=== PATIENT | female | born 1955 | race Caucasian/White ===

== ENCOUNTER → 2018-05-19 09:27 | Outpatient (CLI) | payer MEDICARE ==
[2012-02-27 11:24] VITALS: BMI 31.9
== END | disposition home or self-care (01) ==
LOC: D.MRI 09:27
PROVIDERS: ATTEND Orthopaedic Surgery
DX: S13.100A Subluxation of unspecified cervical vertebrae, initial encounter (principal); X58.XXXA Exposure to other specified factors, initial encounter

== ENCOUNTER 2018-08-13 16:05 | Inpatient (IN) | payer MEDICARE ==
[~2018-08-13] VITALS: Ht 160 cm; Wt 77.1 kg
[2018-08-13] MEDS ORDERED: BENICAR HCT 201 EAC1 PO (16:12)
[2018-08-13] MEDS ORDERED: NEURONTIN 300300 MG PO (16:12)
[2018-08-13] MEDS ORDERED: DYAZIDE 37.5/251 CAP PO (16:14)
[2018-08-13 16:59] LABS: BASOPHILS 0.2 % (0-2); EOSINOPHILS 2.1 % (0-7); HEMATOCRIT 32.4 % (36.0-48.0); HEMOGLOBIN 11.6 g/dL (12-16); IMMATURE GRANULOCYTES 0.2 % (0-5); LYMPHOCYTES 35.1 % (15-50); MCH 28.3 pg (26.0-34.0); MCHC 35.8 g/dL (31.0-37.0); MEAN PLATELET VOLUME 9.6 fL (7.4-10.4); MONOCYTES 8.8 % (2-11); NEUTROPHILS 53.6 % (40-80); PLATELET COUNT 197 10x3/uL (130-400); RDW 13.1 % (11.5-14.5); WBC 8.5 10x3/uL (4.8-10.8)
[2018-08-13 17:30] LABS: ALBUMIN 4.2 g/dL (3.4-5.0); ANION GAP 11.5 mmol/L (8-16); BILIRUBIN - TOTAL 0.88 mg/dL (0.2-1.3); CALCIUM 9.3 mg/dL (8.5-10.1); CARBON DIOXIDE 29.6 mmol/L (21.0-32.0); POTASSIUM - SERUM 3.1 mmol/L (3.5-5.1); PROTEIN - SERUM 7.6 g/dL (6.4-8.2)
[2018-08-13 18:15] LABS: INR 1.01 (0.85-1.17); PROTIME 12.8 SECONDS (11.6-15.0)
[2018-08-13 18:16] LABS: APTT 32.1 SECONDS (22.8-39.4)
[2018-08-13 18:30] VITALS: BP 106/59
[2018-08-13 18:34] LABS: CKMB 1.2 U/L (0.0-3.6); CREATINE KINASE 134 UL (21-215); MAGNESIUM - SERUM 2.5 mg/dL (1.8-2.4); TROPONIN-I < 0.017 ng/mL (0.000-0.060)
[2018-08-13 19:38] LABS: APPEARANCE CLEAR (CLEAR); BILIRUBIN NEGATIVE (NEGATIVE); COLOR YELLOW (YELLOW); GLUCOSE NEGATIVE (NEGATIVE); KETONE SMALL mg/dL (NEGATIVE); NITRITE NEGATIVE (NEGATIVE); PROTEIN NEGATIVE (NEGATIVE); UROBILINOGEN NORMAL (NORMAL)
[2018-08-13 19:39] LABS: EPITHELIAL CELLS OCC /hpf (0-5); WHITE CELLS - URINE 0-5 /hpf (0-5)
[2018-08-13 19:40] LABS: BACTERIA FEW /hpf (NONE SEEN)
[2018-08-13 20:00] VITALS: BP 104/48
[2018-08-13] MEDS ORDERED: TRIAMT/HCTZ CAP 37. (20:43)
[2018-08-13] MEDS ORDERED: HYDROCODON-ACE1 EA10 PO (20:44)
[2018-08-13 20:48] VITALS: BP 104/48; Ht 160 cm; Wt 77.1 kg
[2018-08-13 23:59] LABS: CKMB 1.2 U/L (0.0-3.6); CREATINE KINASE 105 UL (21-215); TROPONIN-I < 0.017 ng/mL (0.000-0.060)
[2018-08-14] VITALS (7 sets, daily range): BP systolic 81–120; BP diastolic 44–70
[2018-08-14 05:15] LABS: ALBUMIN 3.4 g/dL (3.4-5.0); ALKALINE PHOSPHATASE 74 U/L (46-116); CALCIUM 8.3 mg/dL (8.5-10.1); CHLORIDE - SERUM 92 mmol/L (98-107); CREATINE KINASE 91 UL (21-215); CREATININE - SERUM 0.9 mg/dL (0.6-1.3); GLUCOSE 84 mg/dL (74-106); POTASSIUM - SERUM 3.1 mmol/L (3.5-5.1); PROTEIN - SERUM 6.2 g/dL (6.4-8.2); SODIUM 129 mmol/L (136-145); TROPONIN-I < 0.017 ng/mL (0.000-0.060); eGFR NON AFRICAN AMERICAN 67 mL/min (90-120)
[2018-08-14 05:19] LABS: ALT (SGPT) 12 U/L (10-68); CALC OSMOLALITY 261 mosm/kg (275-300); UREA NITROGEN 23 mg/dL (7-18)
[2018-08-14 08:13] LABS: BASOPHILS 0.3 % (0-2); EOSINOPHILS 3.8 % (0-7); HEMATOCRIT 28.4 % (36.0-48.0); HEMOGLOBIN 9.8 g/dL (12-16); IMMATURE GRANULOCYTES 0.2 % (0-5); MCH 27.5 pg (26.0-34.0); MCHC 34.5 g/dL (31.0-37.0); MCV 79.6 fL (80.0-100.0); MEAN PLATELET VOLUME 10.2 fL (7.4-10.4); MONOCYTES 8.7 % (2-11); PLATELET COUNT 184 10x3/uL (130-400); RBC 3.57 10x6/uL (4.00-5.40); RDW 13.2 % (11.5-14.5)
[2018-08-14 08:14] LABS: WBC 5.8 10x3/uL (4.8-10.8)
--- NOTE | 2018-08-14 08:20 | NUR ---
AAOX4. ON ROOM AIR, EVEN UNLABORED BREATHING, ON TELEMETRY, DENIES ANY CURRENT NEEDS OR DISCOMFORTS, BED LOWERED AND LOCKED, CALL LIGHT WITHIN REACH. CPOC
[2018-08-14 12:50] LABS: CREATINE KINASE 87 UL (21-215)
[2018-08-14 12:53] LABS: TROPONIN-I < 0.017 ng/mL (0.000-0.060)
[2018-08-14 13:57] LABS: % SATURATION 30 % (15-55); IRON 66 ug/dl (35-150); TOTAL IRON BIND CAPACITY 219 ug/dl (260-445); UNSAT IRON BIND CAPACITY 153 ug/dl (150-375)
[2018-08-14 14:25] LABS: FERRITIN 279 ng/mL (3-244); LDH 141 U/L (81-234)
--- NOTE | 2018-08-14 16:49 | NUR ---
WHEN BP HAS BEEN TAKEN WITH AUTOMATIC CUFF TO UPPER ARM, LOW BP READINGS SUCH 92/50, 85/48, 85/49, MANUAL BP OF UPPER LEFT ARM WAS 116/70, 116/62, 102/62. C/O DIZZINESS UPON STANDING, SENT PAGE OUT TO DR. WOOD, PATTERNMAKER PRESSURE CAST, BED LOWERED AND LOCKED, CALL LIGHT WITHIN REACH. CPOC
--- NOTE | 2018-08-14 21:41 | NUR ---
PT ALERT & ORIENTED. C/O JAW PAIN 08/19. GAVE NORCO-10 1 TAB PO. COMPLETE ASSESSMENT PER FLOW-SHEET. NO OTHER NEEDS. WILL REASSESS AND CONTINUE TO MONITOR.
[2018-08-15] VITALS: BP 104/47
[2018-08-15 04:00] VITALS: BP 100/48
[2018-08-15 06:26] LABS: CALC OSMOLALITY 277 mosm/kg (275-300); CALCIUM 8.6 mg/dL (8.5-10.1); CARBON DIOXIDE 29.4 mmol/L (21.0-32.0); CHLORIDE - SERUM 104 mmol/L (98-107); CREATININE - SERUM 0.8 mg/dL (0.6-1.3); GLUCOSE 90 mg/dL (74-106); SODIUM 138 mmol/L (136-145); UREA NITROGEN 19 mg/dL (7-18); eGFR NON AFRICAN AMERICAN 77 mL/min (90-120)
[2018-08-15 06:28] LABS: POTASSIUM - SERUM 4.5 mmol/L (3.5-5.1)
[2018-08-15] MEDS ORDERED: TRAZODONE HCL150 MG PO (06:54)
[2018-08-15] MEDS ORDERED: OMEPRAZOLE20 M1 PO (06:55)
--- NOTE | 2018-08-15 06:56 | HP ---
PATIENT: BEE GUILLORY MEDICAL RECORD: [id number] ACCOUNT: [id number] LOCATION:D.[id number] : 55 ADMISSION DATE: 08/14/18 PCP: WIL WOOD MD HISTORY AND PHYSICAL EXAMINATION REASON FOR ADMISSION: Weakness and hypotension. HISTORY OF PRESENT ILLNESS: The patient is a 63-year-old female who states she had lost about 17 pounds in the last 2 weeks on HCG diet. She began feeling very lightheaded with orthostatic dizziness and near syncope. She was very weak and had some nausea. She came to the ER for this reason. She was found to be mildly hypotensive and also sodium in the 125 range. For this reason, she was admitted. She denies chest pain, diarrhea, but has had some intermittent vomiting. PAST MEDICAL HISTORY: Kidney stones, fibromyalgia, osteoarthritis, cervical and lumbar disc disease, recent right rotator cuff injury, essential hypertension, chronic anxiety, hyperlipidemia, diverticulitis, GERD, small hiatal hernia, TMJ dysfunction. PAST SURGICAL HISTORY: Total abdominal hysterectomy and oophorectomy. She has had arthroscopy on shoulder, calcaneal spurs removed from both heels in the past, facelift operation. FAMILY HISTORY: Mother is alive, has anxiety, hypertension and osteoarthritis. Father is . His health is unknown. Aunt with colon cancer. SOCIAL HISTORY: She is now a nonsmoker, having quit recently. Drinks occasional alcoholic beverage. She is a , but currently dating. Uses caffeine. ALLERGIES: DARVOCET. HOME MEDICATIONS: [place] 10 one half to one h.s. for severe back pain, Xanax 0.25 mg twice a day as needed for anxiety, Dyazide 1 q.a.m., Voltaren gel 1% applied to skin over affected joint t.i.d., Flonase nasal spray 1 squirt each nostril daily, ProAir HFA 2 puffs q.4 hours p.r.n. wheezing, cyclobenzaprine 10 mg at h.s. for lumbago, omeprazole 20 mg p.o. q.a.m., Lyrica 75 mg p.o. b.i.d., Meloxicam 15 mg p.o. daily. Benicar 20/12.5 one q.a.m., Neurontin 300 mg p.o. t.i.d., and Dyazide capsule 37.5/25 one daily. ALLERGIES: None mentioned. REVIEW OF SYSTEMS: GENERAL: Fatigue for the last 2 weeks. No fever. HEENT: No recent visual change, sinus congestion, or sore throat. RESPIRATORY: No SOB or cough. CARDIAC: No chest pain, palpitations, claudication. When she stands, she gets lightheaded. GYNECOLOGICAL: No vaginal bleeding. GENITOURINARY: No dysuria. GASTROINTESTINAL: No dyspepsia, change in stools, blood per rectum or dysphagia. NEUROLOGIC: Denies severe headache. Admits to when standing feeling lightheaded and dizzy, but no vertigo symptoms. No weakness in arms or legs. HISTORY AND PHYSICAL [id number] BEE GUILLORY PHYSICAL EXAMINATION: VITAL SIGNS: Temperature is 98, pressure is 90/60, heart rate is 80, respirations are 20, sats 97% on room air. GENERAL: The patient is alert, somewhat tearful. Eyes are clear. NECK: Supple, without bruits or masses. Neck is unremarkable. CHEST: Clear. HEART: Regular rate without murmur. ABDOMEN: Soft, nontender. EXTREMITIES: No CCE. Has had pain on abduction of both shoulders. LABORATORY DATA: Shows a sodium of 125, potassium 3.1, glucose of 84, BUN 23, creatinine 0.9. White count 5800, H&H dropped to 9.8 and 28.4 with an MCV of 79.6. Urine shows small ketones, few bacteria. Specific gravity is 1.01. INR is 1.01. IMAGING: Chest x-ray shows no acute changes. EKG shows first degree AV block. ASSESSMENT: 1. Orthostatic hypotension, symptomatic. 2. Symptomatic hyponatremia. 3. Hypokalemia. 4. Rapid weight loss on HCG diet. 5. History of cervical and lumbar disc disease, chronic pain syndrome, rotator cuff tears, postmenopausal post-hysterectomy. PLAN: The patient was given fluid bolus of saline in the ER. We will continue IV fluids until blood pressure stabilizes. Hold Benicar for now. Replace potassium orally and IV. Cardiac monitoring. Further workup pending clinical course. TRANSINT:[id number] Voice Confirmation ID: [id number] DOCUMENT ID: [id number] WIL WOOD MD at 0656 CC: [id number] DICTATION DATE: 08/14/18 1312 POWER GENERATION TURBINE ROOM OPERATOR: 08/14/18 1343 ADM IN [facility] [address] [id number]
[2018-08-15 08:47] VITALS: BP 96/55
--- NOTE | 2018-08-15 09:53 | NUR ---
UPON DC PT STATED THAT SHE WAS VERY DIZZY, SUPERVISOR CAB WAS CALLED, WHEN I WENT BACK INTO HER ROOM SHE STATED "IM FINE, IM READY TO GO" AND BEGAN TO LEAVE. WE WERE WALKING OUT [facility] WITH CASE MANAGEMENT APPROACHED HER TO TALK ABOUT HER INSURANCE AND SHE TOLD HER THAT HER BLOOD PRESURE WAS LOW AND SHE WAS FEELING DIZZY AGAIN SO I TOOK HER BACK TO HER ROOM TO LAY DOWN. A FEW MOMENTS LATER AND MALE FRIEND SHOWED UP AND SHE STATED "I FEEL FINE ABOUT LEAVING WITH HIM, ID JUST LIKE TO KNOW MY BLOOD PRESURE BEFORE I LEAVE." I CHECKED HER BLOOD PRESSURE IT WAS 96/51. SUPERVISOR CAB WAS NOTIFIED OF BP AND WAS FINE WITH HER LEAVING, FOLLOW UP VISIT IN A WEEK.
--- NOTE | 2018-08-15 13:16 | MORECARE ---
CASE MANAGEMENT DISCHARGE SUMMARY PATIENT: BEE GUILLORY [place] UNIT: [id number] ADM DATE: 08/14/18 AGE: 63 : 55 SEX: F ROOM/BED: D.2214 AUTHOR: ALOK ORTIZ PHYSICIAN: REFERRING PHYSICIAN: AISHWARYA BRAY MD DATE OF SERVICE: 08/15/18 Discharge Plan Patient Name: BEE GUILLORY Facility: [facility]:[place] : 1955 Planned Disposition: Home Anticipated Discharge Date: 08/15/18 Discharge Date: 08/15/2018 Expected LOS: 1 Initial Reviewer: [email or web address] Initial Review Date: 08/13/2018 Generated: 08/15/18 2:16 pm Patient Name: BEE GUILLORY Page [id number] at 1316 All edits/amendments must be made on the electronic document DICTATION DATE: 08/15/18 1316 BUSINESS TECHNOLOGY ARCHITECT: YRN 08/15/18 1316 RPT#: [id number] DC DATE:08/15/18 STATUS: DIS IN [facility] [address] [place] [address] END OF REPORT
--- NOTE | 2018-08-15 13:36 | MORECARE ---
CASE MANAGEMENT DISCHARGE SUMMARY PATIENT: BEE GUILLORY [place] UNIT: [id number] ADM DATE: 08/14/18 AGE: 63 : 55 SEX: F ROOM/BED: D.2214 AUTHOR: ALOK ORTIZ PHYSICIAN: REFERRING PHYSICIAN: AISHWARYA BRAY MD DATE OF SERVICE: 08/15/18 Discharge Plan Patient Name: BEE GUILLORY Facility: [facility]:[place] : 1955 Planned Disposition: Home Anticipated Discharge Date: 08/15/18 Discharge Date: 08/15/2018 Expected LOS: 1 Initial Reviewer: [email or web address] Initial Review Date: 08/13/2018 Generated: 08/15/18 2:36 pm Comments DCP- Discharge Planning Updated by [id number]: Florecita Skelton on 08/15/18 12:[address] LATE ENTRY 0920 CM WAS GOING TO THE PATIENT'S ROOM. SHE WAS ACTUALLY IN THE PROCESS OF WALKING OUT. ROSIE SPOKE WITH HER TO EXPLAIN THE DISCHARGE IMM. SHE STARTED TO COMPLAIN SHE FELT LIGHTHEADED AND DIZZY. SHE WANTED HER BLOOD PRESSURE CHECKED. ROSIE ADVISED THE PRIMARY NURSE TO NOTIFY THE PCP OF PATIENT COMPLAINTS AFTER CHECKING VITAL SIGNS. 0940 DISCHARGE IMM WAS SIGNED. PATIENT DECIDED SHE FELT MUCH BETTER! HER FRIEND ARRIVED TO ASSIST HER HOME. NO FURTHER COMPLAINTS. Coverage Notice Reviewer: [id number] - Florecita Skelton Notice Issued Date-Time: 08/15/2018 9:40 Notice Type: IM Discharge Notice Notice Delivered To: Patient Relationship to Patient: Self Process Manager Name: Delivery Method: HAND - Hand Delivered Stacie Days: Prior Verbal Notification: Recipient Understood Notice: Yes Recipient Signature: Yes Med Rec Note Co-signed by Attending: Coverage Notice Comment: CM DISCUSSED DISCHARGE IMM. PATIENT STATED SHE UNDERSTOOD. DISCHARGE IMM SERVED. SIGNATURE WAS OBTAINED. COPY TO THE PATIENT. COPY TO THE HARD COVER CHART. Last DP export: 08/15/18 12:16 pm Patient Name: BEE GUILLORY Page [phone] at 1336 All edits/amendments must be made on the electronic document DICTATION DATE: 08/15/18 1335 CLASSROOM TECHNOLOGY TECHNICIAN: YRN 08/15/18 1335 RPT#: [id number] DC DATE:08/15/18 STATUS: DIS IN [facility] [address] [place] [address] END OF REPORT
--- NOTE | 2018-08-15 13:42 | MORECARE ---
CASE MANAGEMENT DISCHARGE SUMMARY PATIENT: BEE GUILLORY [place] UNIT: [id number] ADM DATE: 08/14/18 AGE: 63 : 55 SEX: F ROOM/BED: D.2214 AUTHOR: ALOK ORTIZ PHYSICIAN: REFERRING PHYSICIAN: AISHWARYA BRAY MD DATE OF SERVICE: 08/15/18 Discharge Plan Patient Name: BEE GUILLORY Facility: [facility]:[place] : 1955 Planned Disposition: Home Anticipated Discharge Date: 08/15/18 Discharge Date: 08/15/2018 Expected LOS: 1 Initial Reviewer: [email or web address] Initial Review Date: 08/13/2018 Generated: 08/15/18 2:42 pm Comments DCP- Discharge Planning Updated by [email or web address]: Florecita Skelton on 08/15/18 12:[address] LATE ENTRY 0920 CM WAS GOING TO THE PATIENT'S ROOM. SHE WAS ACTUALLY IN THE PROCESS OF WALKING OUT. ROSIE SPOKE WITH HER TO EXPLAIN THE DISCHARGE IMM. SHE STARTED TO COMPLAIN SHE FELT LIGHTHEADED AND DIZZY. SHE WANTED HER BLOOD PRESSURE CHECKED. ROSIE ADVISED THE PRIMARY NURSE TO NOTIFY THE PCP OF PATIENT COMPLAINTS AFTER CHECKING VITAL SIGNS. 0940 DISCHARGE IMM WAS SIGNED. PATIENT DECIDED SHE FELT MUCH BETTER! HER FRIEND ARRIVED TO ASSIST HER HOME. NO FURTHER COMPLAINTS. Coverage Notice Reviewer: [id number] - Florecita Skelton Notice Issued Date-Time: 08/15/2018 9:40 Notice Type: IM Discharge Notice Notice Delivered To: Patient Relationship to Patient: Self Pattern And Chain Maker Name: Delivery Method: HAND - Hand Delivered Stacie Days: Prior Verbal Notification: Recipient Understood Notice: Yes Recipient Signature: Yes Med Rec Note Co-signed by Attending: Coverage Notice Comment: CM DISCUSSED DISCHARGE IMM. PATIENT STATED SHE UNDERSTOOD. DISCHARGE IMM SERVED. SIGNATURE WAS OBTAINED. COPY TO THE PATIENT. COPY TO THE HARD COVER CHART. Last DP export: 08/15/18 12:36 pm Patient Name: BEE GUILLORY Page [id number] at 1342 All edits/amendments must be made on the electronic document DICTATION DATE: 08/15/18 1342 DIRECTOR OF CREATIVE SERVICES: YRN 08/15/18 1342 RPT#: [id number] DC DATE:08/15/18 STATUS: DIS IN [facility] [address] [place] [address] END OF REPORT
== END 2018-08-15 09:48 | disposition home or self-care (01) | DRG 312 ==
LOC: D.ER 16:05 → OBSVTIME 18:59 → D.MS 18:59
PROVIDERS: Family Medicine; ADMIT Family Medicine; ATTEND Family Medicine
DX: I95.1 Orthostatic hypotension (principal); E87.1 Hypo-osmolality and hyponatremia; R53.1 Weakness; M79.7 Fibromyalgia; I10 Essential (primary) hypertension; E78.5 Hyperlipidemia, unspecified; K21.9 Gastro-esophageal reflux disease without esophagitis; E87.6 Hypokalemia; G89.4 Chronic pain syndrome

== ENCOUNTER → 2018-11-04 09:27 | Outpatient (CLI) | payer MEDICARE ==
[~2018-11-04 09:27] MED LIST: BENICAR HCT 201 EAC1 PO; DYAZIDE 37.5/251 CAP PO; HYDROCODON-ACE1 EA10 PO; NEURONTIN 300300 MG PO; OMEPRAZOLE20 M1 PO; TRAZODONE HCL150 MG PO; TRIAMT/HCTZ CAP 37.
== END | disposition home or self-care (01) ==
LOC: D.MRI 10-28 09:00
PROVIDERS: ATTEND Family Medicine
DX: S83.281A Other tear of lateral meniscus, current injury, right knee, initial encounter (principal)

== ENCOUNTER 2019-02-01 09:20 | Day surgery (SDC) | payer MEDICARE ==
[2019-01-28 12:02] LABS: HEMATOCRIT 37.1 % (36.0-48.0); HEMOGLOBIN 12.1 g/dL (12-16); MCH 28.7 pg (26.0-34.0); MCHC 32.6 g/dL (31.0-37.0); MCV 87.9 fL (80.0-100.0); MEAN PLATELET VOLUME 11.2 fL (7.4-10.4); RBC 4.22 10x6/uL (4.00-5.40); RDW 13.4 % (11.5-14.5); WBC 5.3 10x3/uL (4.8-10.8)
[~2019-02-01] VITALS: Ht 160 cm; Wt 70.3 kg
[2019-02-01 11:04] VITALS: BP 120/72; Ht 160 cm; Wt 70.3 kg
--- NOTE | 2019-02-01 18:42 | NUR ---
1820 B/P ELEVATED BECAUSE PT STATED CUFF WAS HURTING HER. IV REMOVED AND INSTRUCTIONS GIVEN. PT WAS MEDICATED AT 1745 BUT PAIN NOT RELIEVED. PT TAKES NORCO 2 TABLETS AT HOME FOR NECK PAIN. UP WITH WALKER. DR WIN AT BEDSIDE TO TALK WITH PT ABOUT HER SURGERY. ASSITED IN W/C AND D/C HOME
--- NOTE | 2019-02-03 15:58 | OP ---
PATIENT NAME: BEE GUILLORY MEDICAL RECORD: [id number] :55 LOCATION:D.OPS ADMISSION DATE: SURGEON: RAY WIN MD DATE OF OPERATION: 02/01/2019 PREOPERATIVE DIAGNOSIS: Medial meniscus tear of the right knee. POSTOPERATIVE DIAGNOSES: Medial meniscus tear of the right knee plus lateral meniscus tear of the right knee. PROCEDURES: 1. Arthroscopic partial medial meniscectomy. 2. Arthroscopic partial lateral meniscectomy. SURGEON: Ray Win MD ANESTHESIA: General. INTRAOPERATIVE COMPLICATIONS: None. 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 OPERATIVE SUMMARY IN DETAIL: After obtaining the preoperative orthopedic surgery consent as well as anesthetic consultation, evaluation and clearance, the patient was brought to the operating room and placed on the operating room table in the operating room table in supine position. After adequate general laryngeal mask airway was administered, tourniquet was placed about the proximal aspect of the patient's right lower extremity. Right lower extremity was then prepped and draped in routine sterile fashion. At this point, the appropriate timeout was taken and agreed upon by all. The leg was elevated and exsanguinated. Tourniquet was elevated to 350 mmHg. Routine inferolateral portal was established followed by a superomedial portal and inferomedial portal. Diagnostic arthroscopy did show the patient to have the above-mentioned findings. Attention was first turned to the medial meniscus. A combination of the arthroscopic meniscotome as well as a resector was utilized to debride the medial meniscus back to stable meniscal elements. Gentle grade III chondromalacia of the distal femoral condyle was gently treated with mild chondroplasty. The leg was then put in a [id number] position and while in the [id number] position, the tear was taken down out of the notch with the nerve retractor and then the scope was switched for medial portal viewing while to the lateral portal, the torn portion of the lateral meniscus was taken down in its entirety. The root was intact. The resector was utilized to smoothen the edge of the remainder of the lateral meniscus. Having completed this, the knee was insufflated with 80 mg of Depo-Medrol with 30 cc of 0.25% Marcaine with epinephrine. Arthroscopy portals were closed in routine interrupted fashion using 4-0 Prolene. Sterile dressings were applied. OPERATIVE REPORT [id number] BEE GUILLORY The patient was awakened and taken to the recovery room in stable condition. All final needle and sponge counts were correct. TRANSINT:[id number] Voice Confirmation ID: [id number] DOCUMENT ID: [id number] AUDELIA BELL, RAY RAMIREZ at 1558 CC: [id number] DICTATION DATE: 02/01/19 1637 QUILTING MACHINE OPERATOR: 02/02/19 0119 [facility] 02/01/19 [facility] [address] [place] [address]
== END 2019-02-01 18:30 | disposition home or self-care (01) ==
LOC: D.OPS 09:20 → D.PAN 10:35 → D.OPS 10:45 → D.PAN 12:45 → D.OPS 18:30
PROVIDERS: Anesthesiology; ATTEND Orthopaedic Surgery
DX: S83.241A Other tear of medial meniscus, current injury, right knee, initial encounter (principal); S83.281A Other tear of lateral meniscus, current injury, right knee, initial encounter; X58.XXXA Exposure to other specified factors, initial encounter